=== PATIENT | female | born 1965 | race Caucasian/White ===

== ENCOUNTER 2018-12-25 15:09 | Emergency (ER) | payer BC ==
[2018-12-25] MEDS: LIDOCAINE 4% CR TOP (16:19)
[2018-12-25] MEDS: LIDOCAINE 1% (MDV) 20 ML INJ SC (16:19)
[2018-12-25] MEDS: IBUPROFEN 600 MG TAB PO (16:22)
[2018-12-25] MEDS: TRIMETHOPRIM/SULFAMETHOX (DS) TAB PO (16:22)
[2018-12-25] MEDS: CEPHALEXIN 500 MG CAP PO (16:22)
== END 2018-12-25 16:30 | disposition home or self-care (01) ==
LOC: FTE 15:09
DX: L73.9 Follicular disorder, unspecified (principal)
CPT/HCPCS: 69000; 99283-25